=== PATIENT | female | born 1935 | race Caucasian/White ===

== ENCOUNTER 2018-12-08 11:09 | Observation (INO) | payer MEDICARE ==
--- NOTE | 2018-12-08 11:35 | ED ---
Neuro HPI - General Chief Complaint: Neuro Symptoms/Deficit Stated Complaint: left sided weakness Time Seen by Provider: 12/08/18 11:14 Source: patient, EMS Mode of arrival: ambulatory Limitations: no limitations - History of Present Illness Is the patient presenting with stroke symptoms?: No Initial Comments: Patient presents to the emergency department stating that she had some numbness on the left side of her body. She also felt like her left upper extremity became very stiff, and was hard to use. Her symptoms resolved after 10 minutes. She currently has no symptoms. She has no chest pain or pressure. She has no nausea or vomiting. She has no focal weakness. She did not have any trouble speaking at anytime. She has no lightheadedness or dizziness. She did not pass out. - Related Data Home Medications: Home Medications Medication Instructions Recorded Confirmed Atenolol [Tenormin] 50 mg PO HS 11/27/13 12/08/18 HYDROcodone/APAP 10-325MG [[place] 1 tab PO BID 11/27/13 12/08/18 10] DULoxetine HCL [Cymbalta] 60 mg PO HS 12/08/18 12/08/18 Hydrochlorothiazide [Hydrodiuril] 50 mg PO DAILY 12/08/18 12/08/18 LORazepam [Ativan] 0.5 mg PO BID 12/08/18 12/08/18 Levothyroxine Sodium [Synthroid] 200 mcg PO DAILY 12/08/18 12/08/18 Losartan Potassium 100 mg PO DAILY 12/08/18 12/08/18 Potassium Chloride ER [K-Dur 20] 20 meq PO DAILY 12/08/18 12/08/18 Simvastatin [Zocor] 20 mg PO HS 12/08/18 12/08/18 Allergies/Adverse Reactions: Allergies Allergy/AdvReac Type Severity Reaction Status Date / Time lisinopril Allergy Swelling Verified 12/08/18 11:21 Sulfa (Sulfonamide Allergy Unknown Verified 12/08/18 11:21 Antibiotics) Review of Systems ROS Statement: Those systems with pertinent positive or pertinent negative responses have been documented in the HPI. ROS Other: All systems not noted in ROS Statement are negative. General Exam Limitations: no limitations General appearance: alert, in no apparent distress Head exam: Present: atraumatic, normocephalic, normal inspection Eye exam: Present: normal appearance, PERRL, EOMI. Absent: scleral icterus, conjunctival injection, periorbital swelling ENT exam: Present: normal exam, mucous membranes moist Neck exam: Present: normal inspection. Absent: tenderness, meningismus, lymphadenopathy Respiratory exam: Present: normal lung sounds bilaterally. Absent: respiratory distress, wheezes, rales, rhonchi, stridor Cardiovascular Exam: Present: regular rate, normal rhythm, normal heart sounds. Absent: systolic murmur, diastolic murmur, rubs, gallop, clicks GI/Abdominal exam: Present: soft, normal bowel sounds. Absent: distended, ten derness, guarding, rebound, rigid Extremities exam: Present: normal inspection, full ROM, normal capillary refill. Absent: tenderness, pedal edema, joint swelling, calf tenderness Back exam: Present: normal inspection Neurological exam: Present: alert, oriented X3, CN II-XII intact Psychiatric exam: Present: normal affect, normal mood Skin exam: Present: warm, dry, intact, normal color. Absent: rash Stroke MDM - Lab Data Result diagrams: 12/08/18 11:34 12/08/18 11:34 Lab Results 12/08/18 12/08/18 12/08/18 Range/Units 11:34 11:34 11:34 WBC 9.6 (3.8-10.6) k/uL RBC 4.38 (3.80-5.40) m/uL Hgb 13.1 (11.4-16.0) gm/dL Hct 38.9 (34.0-46.0) % MCV 88.7 (80.0-100.0) fL MCH 29.8 (25.0-35.0) pg MCHC 33.6 (31.0-37.0) g/dL RDW 16.2 H (11.5-15.5) % Plt Count 307 (150-450) k/uL Neutrophils % 73 % Lymphocytes % 15 % Monocytes % 6 % Eosinophils % 3 % Basophils % 1 % Neutrophils # 7.0 (1.3-7.7) k/uL Lymphocytes # 1.4 (1.0-4.8) k/uL Monocytes # 0.6 (0-1.0) k/uL Eosinophils # 0.3 (0-0.7) k/uL Basophils # 0.1 (0-0.2) k/uL Anisocytosis Slight PT 10.2 (9.0-12.0) sec INR 0.9 (<1.2) APTT 21.0 L (22.0-30.0) sec Sodium 132 L (137-145) mmol/L Potassium 4.1 (3.5-5.1) mmol/L Chloride 97 L (98-107) mmol/L Carbon Dioxide 23 (22-30) mmol/L Anion Gap 12 mmol/L BUN 23 H (7-17) mg/dL Creatinine 0.70 (0.52-1.04) mg/dL Est GFR (CKD-EPI)AfAm >90 (>60 ml/min/1.73 sqM) Est GFR (CKD-EPI)NonAf 82 (>60 ml/min/1.73 sqM) Glucose 127 H (74-99) mg/dL Calcium 9.4 (8.4-10.2) mg/dL Total Bilirubin 0.6 (0.2-1.3) mg/dL AST 25 (14-36) U/L ALT 15 (9-52) U/L Alkaline Phosphatase 85 (38-126) U/L Troponin I (0.000-0.034) ng/mL Total Protein 8.3 H (6.3-8.2) g/dL Albumin 4.0 (3.5-5.0) g/dL 12/08/18 Range/Units 11:34 WBC (3.8-10.6) k/uL RBC (3.80-5.40) m/uL Hgb (11.4-16.0) gm/dL Hct (34.0-46.0) % MCV (80.0-100.0) fL MCH (25.0-35.0) pg MCHC (31.0-37.0) g/dL RDW (11.5-15.5) % Plt Count (150-450) k/uL Neutrophils % % Lymphocytes % % Monocytes % % Eosinophils % % Basophils % % Neutrophils # (1.3-7.7) k/uL Lymphocytes # (1.0-4.8) k/uL Monocytes # (0-1.0) k/uL Eosinophils # (0-0.7) k/uL Basophils # (0-0.2) k/uL Anisocytosis PT (9.0-12.0) sec INR (<1.2) APTT (22.0-30.0) sec Sodium (137-145) mmol/L Potassium (3.5-5.1) mmol/L Chloride (98-107) mmol/L Carbon Dioxide (22-30) mmol/L Anion Gap mmol/L BUN (7-17) mg/dL Creatinine (0.52-1.04) mg/dL Est GFR (CKD-EPI)AfAm (>60 ml/min/1.73 sqM) Est GFR (CKD-EPI)NonAf (>60 ml/min/1.73 sqM) Glucose (74-99) mg/dL Calcium (8.4-10.2) mg/dL Total Bilirubin (0.2-1.3) mg/dL AST (14-36) U/L ALT (9-52) U/L Alkaline Phosphatase (38-126) U/L Troponin I <0.012 (0.000-0.034) ng/mL Total Protein (6.3-8.2) g/dL Albumin (3.5-5.0) g/dL - Medical Decision Making Patient presented with paresthesias in the left side or weakness in the hand, now resolved. She has no neurological deficits. CT of the head shows no acute bleed or stroke. CTA shows 50% carotid stenosis. I'm concerned she likely had a TIA and requires further workup. Patient will be admitted to the hospital. Past Medical History Past Medical History: Hyperlipidemia, Hypertension History of Any Multi-Drug Resistant Organisms: None Reported Past Surgical History: Breast Surgery, Joint Replacement, Orthopedic Surgery Past Psychological History: Anxiety, Depression Smoking Status: Former smoker Past Alcohol Use History: Occasional Past Drug Use History: None Reported Course Vital Signs 12/08/18 11:15 Temperature 98.1 F Pulse Rate 95 Respiratory 18 Rate Blood Pressure 116/80 O2 Sat by Pulse 97 Oximetry Disposition Clinical Impression: Transient cerebral ischemia Disposition: ADMITTED IP TO THIS HOSP Condition: Fair Referrals: Nonstaff,Physician [Primary Care Provider] - 1-2 days
[2018-12-08 11:48] LABS: Anisocytosis Slight; Basophils # (A) 0.1 k/uL (0-0.2); Basophils % (A) 1 %; Eosinophils # (A) 0.3 k/uL (0-0.7); Eosinophils % (A) 3 %; HCT 38.9 % (34.0-46.0); HGB 13.1 gm/dL (11.4-16.0); Lymphocytes # (A) 1.4 k/uL (1.0-4.8); Lymphocytes % (A) 15 %; MCH 29.8 pg (25.0-35.0); MCHC 33.6 g/dL (31.0-37.0); MCV 88.7 fL (80.0-100.0); Monocytes # (A) 0.6 k/uL (0-1.0); Monocytes % (A) 6 %; Neutrophils % (A) 73 %; Platelet Count 307 k/uL (150-450); RBC 4.38 m/uL (3.80-5.40); RDW 16.2 % (11.5-15.5); WBC 9.6 k/uL (3.8-10.6)
[2018-12-08 11:49] LABS: ALT 15 U/L (9-52); AST 25 U/L (14-36); African American GFR (CKD) >90 (>60 ml/min/1.73 sqM); Alkaline Phosphatase 85 U/L (38-126); Anion Gap 12 mmol/L; Blood Urea Nitrogen 23 mg/dL (7-17); Calcium 9.4 mg/dL (8.4-10.2); Carbon Dioxide 23 mmol/L (22-30); Chloride 97 mmol/L (98-107); Glucose 127 mg/dL (74-99); Potassium 4.1 mmol/L (3.5-5.1); Sodium 132 mmol/L (137-145); Total Bilirubin 0.6 mg/dL (0.2-1.3); Total Protein 8.3 g/dL (6.3-8.2)
[2018-12-08 12:16] LABS: INR 0.9 (<1.2); Prothrombin Time 10.2 sec (9.0-12.0)
--- NOTE | 2018-12-08 12:44 | CT ---
EXAMINATION TYPE: CT brain wo con DATE OF EXAM: 12/08/2018 COMPARISON: None HISTORY: Left side weakness CT DLP: 1088 mGycm Automated exposure control for dose reduction was used. TECHNIQUE: CT scan of the head is performed without contrast. FINDINGS: There is no acute intracranial hemorrhage or midline shift identified. Suspicious extra-a xial fluid collection. There is diffuse ventricular and sulcal prominence consistent with diffuse age -related cerebral atrophy. There is low-attenuation in the periventricular white matter consistent w ith chronic small vessel ischemic change. The globes are intact and the visualized sinuses are clear . IMPRESSION: No acute intracranial hemorrhage or midline shift. There is diffuse age-related cerebra l atrophy and chronic small vessel ischemic change noted. MRI could be considered given the patient' s symptoms of left-sided weakness.
--- NOTE | 2018-12-08 12:53 | XR ---
EXAMINATION TYPE: XR chest 2V DATE OF EXAM: 12/08/2018 COMPARISON: 11/19/2013 HISTORY: Altered mental status and weakness TECHNIQUE: Frontal and lateral views of the chest are obtained. FINDINGS: Chronic interstitial prominence. New peribronchial cuffing. There is no focal air space opa city, pleural effusion, or pneumothorax seen. The cardiac silhouette size is within normal limits. M ultiple old healed right sided rib fractures. Left humeral arthroplasty noted. Degenerative changes o f the spine and right shoulder. Flattening of the diaphragms and pulmonary hyperinflation suggests un derlying COPD. IMPRESSION: Peribronchial cuffing on the lateral view may relate to reactive or infectious airway disease. Otherw ise chronic findings.
--- NOTE | 2018-12-08 13:17 | CT ---
EXAMINATION TYPE: CT angio head neck DATE OF EXAM: 12/08/2018 HISTORY: left side weakness COMPARISON: CT brain dictation the same date CT DLP: 624.7 mGycm. Automated Exposure Control for Dose Reduction was Utilized. TECHNIQUE: CTA scan of the neck is performed with IV Contrast, patient injected with 50 mL of Isovue 370, axial images are obtained, coronal and sagittal reformatted images are reviewed. Three-D recons tructed images are created on an independent workstation and reviewed. FINDINGS: Carotid/Vascular Structures: Conventional three-vessel branch pattern of the aortic arch is seen. No hemodynamically significant stenosis within the common carotid arteries, carotid bulbs, nor cervical portions of the internal carotid arteries. There is dominance on the left vertebral artery although t he vertebral arteries both appear patent without hemodynamic significant stenosis. Vertebrobasilar sy stem overall also appears patent with a tortuous but otherwise unremarkable basilar artery. There is stenosis of the left A1 segment of the anterior cerebral artery of approximately 50% in comparison to the right involving the entirety of the A1 segment. An anterior communicating artery is not definiti vely identified. No sizable intracranial aneurysm is seen. Major intracranial vasculature appear freddy sly patent. There is also stenosis of the left P1 segment in comparison to the right also of approxim ately 50%. Other: Conglomeration of right hilar lymph nodes is partially visualized measuring 2.4 x 1.4 cm. Othe r mildly enlarged and prominent mediastinal lymph nodes are partially visualized. Mild multilevel deg enerative disc disease of the cervical spine. There are geographic opacities scattered throughout the lungs most commonly on the basis of fluid overload but can be seen in pneumonitis. Pleural effusions are partially visualized. IMPRESSION: 1. No evidence of large vessel intracranial occlusion. Stenosis of the left A1 segment of the anterio r cerebral artery and P1 segment of the posterior cerebral artery are seen of approximately 50%. 2. Partially visualized mediastinal adenopathy that could be further evaluated with CT thorax. Scatte red groundglass opacities are noted with partially visualized pleural effusions all likely on the bas is of fluid overload although pneumonitis is possible.
[2018-12-08] MEDS ORDERED: NALOXONE 0.4 MG/ML 1 ML VIAL IV PRN (14:10)
[2018-12-08] MEDS ORDERED: traMADol 50 MG TAB PO PRN (14:10)
[2018-12-08] MEDS ORDERED: HYDROmorphone 1 MG/ML 1 ML SYRINGE IVP PRN (14:10)
[2018-12-08] MEDS ORDERED: MAG HYDROX/AL HYDROX/SIMETH 30 ML CUP PO PRN (14:10)
[2018-12-08] MEDS ORDERED: ONDANSETRON 4 MG/2 ML VIAL IVP PRN (14:10)
[2018-12-08] MEDS ORDERED: LORazepam 0.5 MG TAB PO PRN (14:10)
[2018-12-08] MEDS ORDERED: TEMAZEPAM 15 MG CAP PO PRN (14:10)
[2018-12-08] MEDS ORDERED: DOCUSATE 100 MG CAP PO PRN (14:10)
[2018-12-08] MEDS ORDERED: HYDROcodone/APAP 10-325MG 1 EACH TAB PO PRN (19:06)
[2018-12-08] MEDS: ASPIRIN 325 MG TAB PO SCH (19:58)
[2018-12-08] MEDS ORDERED: ATORVASTATIN 10 MG TAB PO SCH (21:00)
[2018-12-08] MEDS ORDERED: DULoxetine HCL 60 MG CAPSULE.DR PO SCH (21:00)
[2018-12-08] MEDS ORDERED: HYDROcodone/APAP 10-325MG 1 EACH TAB PO SCH (21:00)
[2018-12-08] MEDS ORDERED: ATENOLOL 50 MG TAB PO SCH (21:00)
[2018-12-09 06:11] LABS: Basophils # (A) 0.1 k/uL (0-0.2); Basophils % (A) 1 %; Eosinophils # (A) 0.4 k/uL (0-0.7); Eosinophils % (A) 5 %; HCT 37.5 % (34.0-46.0); HGB 12.4 gm/dL (11.4-16.0); Lymphocytes # (A) 2.1 k/uL (1.0-4.8); Lymphocytes % (A) 24 %; MCH 29.6 pg (25.0-35.0); MCHC 33.1 g/dL (31.0-37.0); MCV 89.4 fL (80.0-100.0); Mean Platelet Volume 7.2; Monocytes # (A) 0.8 k/uL (0-1.0); Monocytes % (A) 9 %; Neutrophils # (A) 5.1 k/uL (1.3-7.7); Neutrophils % (A) 58 %; Platelet Count 310 k/uL (150-450); RDW 15.2 % (11.5-15.5); WBC 8.7 k/uL (3.8-10.6)
[2018-12-09 06:21] LABS: Calcium 9.4 mg/dL (8.4-10.2); Potassium 4.2 mmol/L (3.5-5.1)
[2018-12-09] MEDS ORDERED: LEVOTHYROXINE 100 MCG TAB PO SCH (06:30)
[2018-12-09] MEDS: ASPIRIN 325 MG TAB PO SCH (08:33)
[2018-12-09] MEDS ORDERED: POTASSIUM CHLORIDE ER 20 MEQ TAB.ER PO SCH (09:00)
[2018-12-09] MEDS ORDERED: HYDROCHLOROTHIAZIDE 50 MG TAB PO SCH (09:00)
[2018-12-09] MEDS ORDERED: LOSARTAN 50 MG TAB PO SCH (09:00)
[2018-12-09 13:10] LABS: T4, Free (Free Thyroxine) 1.91 ng/dL (0.78-2.19)
[2018-12-09 13:24] VITALS: BP 136/78; PULSE 65; RESP 16; TEMP 97.6
--- NOTE | 2018-12-09 14:51 | P.HPIM ---
History of Present Illness 83-year-old cousin female came in with comments of numbness in the left arm and left leg. Patient usually sees physicians in [place]. Patient is resisting care. Symptoms resolved in 10 minutes without any weakness without any speech abnormality. Patient does have significant history of from atrial fibrillation patient used to be on aspirin which was discontinued any other anticoagulations discontinued as well because of her ischemic colitis and the severe GI bleed in the past. Patient doesn't have any of those issues at this time. Patient had a failed the watchman procedure followed by maze procedure for A. fib with clamp on the left atrial appendage. Patient EKG showed sinus rhythm and no significant abnormality and telemetry TSH is bit low but free T4 is within normal limits be probably may need to cut down the levothyroxine dose. There is incidental finding of mediastinal adenopathy which can be reassessed in about a month or with a dedicated CAT scan of the chest as an outpatient. Patient underwent workup for TIA, probably will undergo MRI if that's negative patient will be discharged on aspirin had a lengthy discussion with the neurology as well as patient. Patient will be started back on 81 mg of aspirin. Her LDL is in 30s. Patient had a CT angios the head and neck which did not show any significant atherosclerotic coronary occlusive disease. If cleared by neurology and if MRI doesn't show any significant about the patient will be discharged today. Review of Systems REVIEW OF SYSTEMS: CONSTITUTIONAL: No fever, no malaise, no fatigue. HEENT: No recent visual problems or hearing problems. Denied any sore throat. CARDIOVASCULAR: No chest pain, orthopnea, PND, no palpitations, no syncope. PULMONARY: No shortness of breath, no cough, no hemoptysis. GASTROINTESTINAL: No diarrhea, no nausea, no vomiting, no abdominal pain. NEUROLOGICAL: No headaches, no weakness, no numbness. HEMATOLOGICAL: Denies any bleeding or petechiae. GENITOURINARY: Denies any burning micturition, frequency, or urgency. MUSCULOSKELETAL/RHEUMATOLOGICAL: Denies any joint pain, swelling, or any muscle pain. ENDOCRINE: Denies any polyuria or polydipsia. The rest of the 14-point review of systems is negative. Past Medical History Past Medical History: Atrial Fibrillation, Eye Disorder, Hearing Disorder / Deafness, Hyperlipidemia, Hypertension, Osteoarthritis (OA), Thyroid Disorder Additional Past Medical History / Comment(s): 12/08/09 ADMITTED FOR TIA SYMPTOMS. ENDOMETRIOSIS. ALOPECIA UNKNOWN CAUSE. URINARY STRESS INCONTINENCE, ISCHEMIC COLITIS History of Any Multi-Drug Resistant Organisms: None Reported Past Surgical History: Breast Surgery, Joint Replacement, Orthopedic Surgery Additional Past Surgical History / Comment(s): MAZE PROCEDRE TO STOP AFIB, ATRIAL CLAMP ON LEFT ATRIAL APPENDAGE. BILAT KNEE REPLACEMENTS AND LEFT SHOULDER JOINT REPLACEMENT. BILATERAL BREAST REDUCTION, RIGHT CATARACT SURGERY. TOOTH IMPLANTS Past Anesthesia/Blood Transfusion Reactions: No Reported Reaction Additional Past Anesthesia/Blood Transfusion Reaction / Comment(s): BLOOD TRANSFUSION FIRST KNEE SURGERY Smoking Status: Former smoker - Past Family History Father Family Medical History: Diabetes Mellitus, GERD/Reflux, Myocardial Infarction (VT) Mother Family Medical History: No Reported History Additional Family Medical History / Comment(s): GALLBLADDER SURGERY AT AGE 36. KILLED AUTO ACCIDENT AGE 70 Medications and Allergies Home Medications Medication Instructions Recorded Confirmed Type Atenolol [Tenormin] 50 mg PO HS 11/27/13 12/08/18 History HYDROcodone/APAP 10-325MG [[place] 1 tab PO BID 11/27/13 12/08/18 History 10] DULoxetine HCL [Cymbalta] 60 mg PO HS 12/08/18 12/08/18 History Hydrochlorothiazide [Hydrodiuril] 50 mg PO DAILY 12/08/18 12/08/18 History LORazepam [Ativan] 0.5 mg PO BID 12/08/18 12/08/18 History Levothyroxine Sodium [Synthroid] 200 mcg PO DAILY 12/08/18 12/08/18 History Losartan Potassium 100 mg PO DAILY 12/08/18 12/08/18 History Potassium Chloride ER [K-Dur 20] 20 meq PO DAILY 12/08/18 12/08/18 History Simvastatin [Zocor] 20 mg PO HS 12/08/18 12/08/18 History Aspirin 81 mg PO DAILY #30 chewable 12/09/18 Rx Allergies Allergy/AdvReac Type Severity Reaction Status Date / Time lisinopril Allergy Swelling Verified 12/08/18 11:21 Sulfa (Sulfonamide Allergy Unknown Verified 12/08/18 11:21 Antibiotics) Physical Exam Vitals: Vital Signs Temp Pulse Pulse Resp BP BP Pulse Ox 12/09/18 12:00 97.6 F 65 16 136/78 94 L 12/09/18 11:23 91 14 12/09/18 08:00 98.0 F 91 14 110/76 93 L 12/09/18 03:28 98.4 F 86 18 95 12/09/18 00:00 98.4 F 90 18 118/77 96 12/08/18 20:00 98 F 92 18 121/81 93 L 12/08/18 15:10 98.4 F 98 20 130/93 96 12/08/18 14:52 98.0 F 97 18 139/94 96 Intake and Output 12/08/18 12/09/18 12/09/18 22:59 06:59 14:59 Intake Total 300 Balance 300 Intake: Oral 300 Other: # Voids 1 1 1 Weight 86.5 kg 85.9 kg PHYSICAL EXAMINATION: GENERAL: The patient is alert and oriented x3, not in any acute distress. Well developed, well nourished. HEENT: Pupils are round and equally reacting to light. EOMI. No scleral icterus. No conjunctival pallor. Normocephalic, atraumatic. No pharyngeal erythema. No thyromegaly. CARDIOVASCULAR: S1 and S2 present. No murmurs, rubs, or gallops. PULMONARY: Chest is clear to auscultation, no wheezing or crackles. ABDOMEN: Soft, nontender, nondistended, normoactive bowel sounds. No palpable organomegaly. MUSCULOSKELETAL: No joint swelling or deformity. EXTREMITIES: No cyanosis, clubbing, or pedal edema. NEUROLOGICAL: Gross neurological examination did not reveal any focal deficits. SKIN: No rashes. Results CBC & Chem 7: 12/09/18 05:25 12/09/18 05:30 Labs: Abnormal Lab Results - Last 24 Hours (Table) 12/09/18 12/09/18 Range/Units 05:25 05:30 Sodium 135 L (137-145) mmol/L BUN 25 H (7-17) mg/dL Glucose 104 H (74-99) mg/dL HDL Cholesterol 31 L (40-60) mg/dL TSH 0.165 L (0.465-4.680) mIU/L Thrombosis Risk Factor Assmnt - Choose All That Apply Each Factor Represents 1 point: Obesity (BMI >25) Other Risk Factors: Yes (TIA) Each Risk Factor Represents 3 Points: Age 75 years or older Other congenital or acquired thrombophilia - If yes, enter type in comment: No Thrombosis Risk Factor Assessment Total Risk Factor Score: 4 Thrombosis Risk Factor Assessment Level: Moderate Risk Assessment and Plan Plan: -Possibility of TIA mostly ischemic involving the ventral posterior lateral nucleus of of left thalamic's, or diffuse sensory TIA, symptoms resolved, patient was started back on aspirin will not require any statin. Neurology validate the patient MRI as mentioned above. -Atrial fibrillation no evidence of recurrence of A. fib considering that the patient has a maze procedure in the past and there is no clear-cut evidence of A. fib recurrence patient will not be started on antibiotics but patient was started on aspirin if deemed necessary patient may benefit from Holter monitoring as an outpatient. -Hypothyroidism TSH is low may need to cut down the levothyroxine dose, free T4 is 1.91. -Incidental finding of mediastinal adenopathy probably because of infectious causes minute to repeat the CAT scan about a month, patient may require a dedicated CAT scan of the chest. This is an incidental finding on the CAT scan of the brain. -History of ischemic colitis in the past with significant GI bleed and subcutaneous current discontinuation of all anticoagulation and antiplatelet therapy -Hyperlipidemia - hypertension -Anxiety disorder and depression. Patient probably will be discharged today depending on MRI results with the baby aspirin.
--- NOTE | 2018-12-09 14:51 | P.DS ---
Providers Date of admission: 12/08/18 14:10 Attending physician: Bridget Justin MD Consults: 12/08/18 16:25 Consult Physician Routine Consulting Provider: Valerie Angeles Consult Reason/Comments: TIA, LEFT ARM AND LEG WEAKNESS Do you want consulting provider notified?: Yes Primary care physician: Physician Nonstaff Hospital Course: Please refer to my HPI Patient Condition at Discharge: Fair Plan - Discharge Summary New Discharge Prescriptions: New Aspirin 81 mg PO DAILY #30 chewable Continue HYDROcodone/APAP 10-325MG [[place] 10-325] 1 tab PO BID Atenolol [Tenormin] 50 mg PO HS Simvastatin [Zocor] 20 mg PO HS Potassium Chloride ER [K-Dur 20] 20 meq PO DAILY Losartan Potassium 100 mg PO DAILY Hydrochlorothiazide [Hydrodiuril] 50 mg PO DAILY DULoxetine HCL [Cymbalta] 60 mg PO HS Levothyroxine Sodium [Synthroid] 200 mcg PO DAILY LORazepam [Ativan] 0.5 mg PO BID Discharge Medication List Atenolol [Tenormin] 50 mg PO HS 11/27/13 [History] HYDROcodone/APAP 10-325MG [[place] 10-325] 1 tab PO BID 11/27/13 [History] DULoxetine HCL [Cymbalta] 60 mg PO HS 12/08/18 [History] Hydrochlorothiazide [Hydrodiuril] 50 mg PO DAILY 12/08/18 [History] LORazepam [Ativan] 0.5 mg PO BID 12/08/18 [History] Levothyroxine Sodium [Synthroid] 200 mcg PO DAILY 12/08/18 [History] Losartan Potassium 100 mg PO DAILY 12/08/18 [History] Potassium Chloride ER [K-Dur 20] 20 meq PO DAILY 12/08/18 [History] Simvastatin [Zocor] 20 mg PO HS 12/08/18 [History] Aspirin 81 mg PO DAILY #30 chewable 12/09/18 [Rx] Follow up Appointment(s)/Referral(s): Nonstaff,Physician [Primary Care Provider] - 3 Days
--- NOTE | 2018-12-09 17:01 | P.CNNES ---
History of Present Illness Consult date: 12/09/18 Reason for Consult: TIA Chief complaint: Left-sided numbness History of Present Illness: REFERRING PHYSICIAN: Dr. Bridget Justin HISTORY OF PRESENT ILLNESS: Thank you for allowing me to evaluate Mrs. Claudia Middleton. Ms. Middleton is an 83-year-old woman with past medical history of hyperlipidemia and hypertension, presented to [facility] for left-sided numbness, consulting neurology for TIA work-up and management. Patient states that she was bending over the bathtub to turn on the water when she suddenly started having L arm numbness and "prickly" sensation that spread to her legs. Patient states that this episode lasted for about 10-15 minutes and self-resolved. Patient remember thinking, "is my leg gonna start working?" She denies having to drag her leg but it was more of the sensation deficit that bothered her. Patient denies any headache, dizziness, nausea, vomiting, double/blurry vision, weakness, dysarthria, dysphagia, word-finding difficulty during the episode. Patient denies any recent sickness, travel, fever, sick contact. She lives in [place] most of the time, but she was visiting [place] for about 2 months (she has a cottage in the area, where she has been staying). Patient reports that she had an episode of sharp pain that started from her back to her chest, was diagnosed with atrial fibrillation. Patient underwent maze procedure along with atrial clamp on L atrial appendage as patient was advised by GI specialists that she should not be on anticoagulation or even ASA for concerns of bleeding. Patient with episodes of ischemic colitis x 4 since many years ago, last episode early this year. Patient and partner state that during one of the episodes, she may have had a large bleed due to being on ASA and taking Advil on a daily basis for pain. Patient also states that she has not seen a technical service specialist in a while. PAST MEDICAL HISTORY: Hyperlipidemia, hypertension, anxiety, depression, a.fib, R eye cataract s/p surgery, osteoarthritis, endometriosis, ischemic colitis PAST SURGICAL HISTORY: b/l knee replacement and L shoulder joint replacement, breast reduction surgery, maze procedure to stop a.fib, atrial clamp on L atrial appendage HOME MEDICATIONS: [place], Atenolol, Simvastatin, KCl, Losartan, HCTZ, Duloxetine, Levothyroxine ALLERGIES: Lisinopril, sulfa SOCIAL HISTORY: Former smoker, denies EtOH/drug abuse FAMILY HISTORY: Father-DM, GERD, [place] Mother-Gallbladder surgery at 36, from a car accident REVIEW OF SYSTEMS: The 14 systems are reviewed and no additional points are identified compared to the review of systems documented history and physical PHYSICAL EXAMINATION: VITAL SIGNS: T 98 HR 90 RR 14 bp 110/76 O2 saturation 93% on room air GEN.: NAD, pleasant and cooperative HEENT: NCAT, sclera without icterus NECK: Supple SKIN AND EXTREMITIES: Warm to touch, no edema NEURO: MENTAL STATUS: Patient alert and oriented to self, place, time. Able to name the current president. Speech fluent, able to name and repeat, following all commands readily. No right and left disorientation, extinction to double simu ltaneous stimulation, finger agnosia, neglect. CRANIAL NERVES II THROUGH XII: II: Pupils are equal and reactive to light symmetrically. No afferent pupillary defect. Visual person are intact. III, IV, : No ptosis. Extraocular movements full. No nystagmus. V: Facial sensation intact from V1-3. VII. No clear facial asymmetry. VIII: Hearing intact to finger rub bilaterally. IX, X: Symmetric palate elevation. XI: Shoulder shrug intact. XII: Tongue midline without fasciculation or atrophy. MOTOR: Normal bulk/tone. No pronator drift or tremor. Strength is 5/5 throughout all 4 extremities. SENSORY: Intact to light touch in all 4 extremities. Romberg is negative. REFLEXES: 2+ throughout (except L knee). Toes are downgoing. No clonus. Vince's is absent COORDINATION: Finger to nose intact. No dysmetria. GAIT: Narrow-based and stable. Able to toe (but with some difficult due to previous knee surgeries)/heel/tandem walk DIAGNOSTIC TESTING: LABORATORY: WBC 8.7 hemoglobin 12.4 platelet 310 PT 10.2 INR 0.9 Sodium 135 potassium 4.2 chloride 101 bicarb 25 BUN 25 creatinine 0.86 glucose 104 AST 25 ALT 15 troponin <0.012 IMAGING: CT head without contrast 12/08/2018: No acute intracranial hemorrhage or midline shift. There is diffuse age-related cerebral atrophy and chronic small vessel ischemic change noted. CT head and neck with contrast 12/08/2018: No evidence of large vessel intracranial occlusion. 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 Partially visualized mediastinal adenopathy that could be further evaluated with CT thorax. Scattered ground glass opacities are noted with partially visualized pleural effusion all likely on the basis of fluid overload although pneumonitis as possible. Chest x-ray 12/08/2018: Peribronchial cuffing on the lateral view may relate to reactive for infectious airway disease. Otherwise chronic changes. Cardiac monitoring: No arrhythmia noted so far. ASSESSMENT: Ms. Middleton is an 83-year-old woman with past medical history of hyperlipidemia and hypertension, presented to [facility] for left-sided numbness, consulting neurology for TIA work-up and management. At this time, patient with no focal deficits. Patient would benefit from getting MRI brain during this admission, but due to the presence of atrial appendage clipping and radiology requiring an operative report to find out whether or not the clip is MRI compatible. Patient with no neuro deficits, most likely diagnosis TIA. Patient has a high risk of stroke as patient with hx of a.fib, but it's possible that the maze procedure can treat atrial fibrillation. With a diagnosis of a.fib, this patient's CHADsVASc score is 7! Vessel imaging with no large intracranial occlusion or carotid stenosis. Patient would like to return to [place] to get further care including possible MRI as outpatient. Patient would like to be started on ASA at least as she says her worst nightmare is having a stroke. Discussed the concern about ischemic colitis and heaving bleeding as a result. Patient would like to continue taking ASA. RECOMMENDATIONS: 1. TTE done; awaiting final results 2. c/w ASA 81 mg qday 3. increase statin to atorvastatin atorvastatin 80mg qday 4. pt needs to follow up with her PCP within 1-2 weeks of discahrge and with technical service specialist and neurologist within 2-3 weeks of discharge Past Medical History Past Medical History: Atrial Fibrillation, Eye Disorder, Hearing Disorder / De afness, Hyperlipidemia, Hypertension, Osteoarthritis (OA), Thyroid Disorder Additional Past Medical History / Comment(s): 12/08/09 ADMITTED FOR TIA SYMPTOMS. ENDOMETRIOSIS. ALOPECIA UNKNOWN CAUSE. URINARY STRESS INCONTINENCE, ISCHEMIC COLITIS History of Any Multi-Drug Resistant Organisms: None Reported Past Surgical History: Breast Surgery, Joint Replacement, Orthopedic Surgery Additional Past Surgical History / Comment(s): MAZE PROCEDRE TO STOP AFIB, ATRIAL CLAMP ON LEFT ATRIAL APPENDAGE. BILAT KNEE REPLACEMENTS AND LEFT SHOULDER JOINT REPLACEMENT. BILATERAL BREAST REDUCTION, RIGHT CATARACT SURGERY. TOOTH IMPLANTS Past Anesthesia/Blood Transfusion Reactions: No Reported Reaction Additional Past Anesthesia/Blood Transfusion Reaction / Comment(s): BLOOD TRANSFUSION FIRST KNEE SURGERY Smoking Status: Former smoker - Past Family History Father Family Medical History: Diabetes Mellitus, GERD/Reflux, Myocardial Infarction ([place]) Mother Family Medical History: No Reported History Additional Family Medical History / Comment(s): GALLBLADDER SURGERY AT AGE 36. KILLED AUTO ACCIDENT AGE 70 Medications and Allergies Home Medications Medication Instructions Recorded Confirmed Type Atenolol [Tenormin] 50 mg PO HS 11/27/13 12/08/18 History HYDROcodone/APAP 10-325MG [[place] 1 tab PO BID 11/27/13 12/08/18 History 10-325] DULoxetine HCL [Cymbalta] 60 mg PO HS 12/08/18 12/08/18 History Hydrochlorothiazide [Hydrodiuril] 50 mg PO DAILY 12/08/18 12/08/18 History LORazepam [Ativan] 0.5 mg PO BID 12/08/18 12/08/18 History Levothyroxine Sodium [Synthroid] 200 mcg PO DAILY 12/08/18 12/08/18 History Losartan Potassium 100 mg PO DAILY 12/08/18 12/08/18 History Potassium Chloride ER [K-Dur 20] 20 meq PO DAILY 12/08/18 12/08/18 History Simvastatin [Zocor] 20 mg PO HS 12/08/18 12/08/18 History Aspirin 81 mg PO DAILY #30 chewable 12/09/18 Rx Allergies Allergy/AdvReac Type Severity Reaction Status Date / Time lisinopril Allergy Swelling Verified 12/08/18 11:21 Sulfa (Sulfonamide Allergy Unknown Verified 12/08/18 11:21 Antibiotics) Physical Examination - Vital Signs Vital Signs: Vital Signs Temp Pulse Pulse Resp BP BP Pulse Ox 12/09/18 08:00 98.0 F 91 14 110/76 93 L 12/09/18 03:28 98.4 F 86 18 95 12/09/18 00:00 98.4 F 90 18 118/77 96 12/08/18 20:00 98 F 92 18 121/81 93 L 12/08/18 15:10 98.4 F 98 20 130/93 96 12/08/18 14:52 98.0 F 97 18 139/94 96 12/08/18 14:41 98.0 F 97 18 139/94 96 12/08/18 11:15 98.1 F 95 18 116/80 97 Intake and Output 12/08/18 12/09/18 12/09/18 22:59 06:59 14:59 Other: # Voids 1 1 Weight 86.5 kg 85.9 kg Results - Laboratory Findings CBC and BMP: 12/09/18 05:25 12/09/18 05:30 Abnormal Lab Findings: Abnormal Labs 12/08/18 12/08/18 12/08/18 11:34 11:34 11:34 RDW 16.2 H APTT 21.0 L Sodium 132 L Chloride 97 L BUN 23 H Glucose 127 H Total Protein 8.3 H 12/09/18 05:30 RDW APTT Sodium 135 L Chloride BUN 25 H Glucose 104 H Total Protein
[2018-12-09 18:09] LABS: Hemoglobin A1C 6.1 % (4.0-6.0)
[2018-12-10] MEDS ORDERED: LOSARTAN 50 MG TAB PO SCH (09:00)
--- NOTE | 2018-12-10 09:32 | ECHOF ---
Referral Reason:L-sided weakness MEASUREMENTS -------- HEIGHT: 157.5 cm WEIGHT: 85.7 kg BP: 110/67 RVIDd: 2.6 cm (< 3.3) IVSd: 1.3 cm (0.6 - 1.1) LVIDd: 3.8 cm (3.9 - 5.3) LVPWd: 1.2 cm (0.6 - 1.1) IVSs: 1.6 cm LVIDs: 2.1 cm LVPWs: 1.3 cm LA Diam: 3.2 cm (2.7 - 3.8) Ao Diam: 3.0 cm (2.0 - 3.7) AV Cusp: 1.6 cm (1.5 - 2.6) LA Diam: 3.3 cm (2.7 - 3.8) MV EXCURSION: 14.924 mm (> 18.000) MV EF SLOPE: 115 mm/s (70 - 150) EPSS: 0.1 cm MV E Curtis: 0.95 m/s MV DecT: 155 ms MV A Curtis: 0.27 m/s MV E/A Ratio: 3.52 RAP: 5.00 mmHg RVSP: 45.71 mmHg FINDINGS -------- Atrial fibrillation. This was a techncally difficult study with suboptimal views, , Lumason utilized for enhancement of im ages. The left ventricular size is normal. There is mild concentric left ventricular hypertrophy. Overa ll left ventricular systolic function is low-normal with, an EF between 50 - 55 %. The right ventricle is normal in size. The left atrial size is normal. The right atrial size is normal. 5.0mg OF Lumason UTLIZED: 2 OR MORE WALL SEGMENTS NOT VISUALIZED. There is mild aortic valve sclerosis. There is no evidence of aortic regurgitation. Mild mitral annular calcification present. Mild mitral regurgitation is present. Mild tricuspid regurgitation present. There is mild to moderate pulmonary hypertension. The right ventricular systolic pressure, as measured by Doppler, is 45.71mmHg. There is no pulmonic regurgitation present. The aortic root size is normal. There is no pericardial effusion. CONCLUSIONS -------- 1. Atrial fibrillation. 2. This was a techncally difficult study with suboptimal views, , Lumason utilized for enhancement of images. 3. The left ventricular size is normal. 4. There is mild concentric left ventricular hypertrophy. 5. Overall left ventricular systolic function is low-normal with, an EF between 50 - 55 %. 6. The right ventricle is normal in size. 7. The left atrial size is normal. 8. The right atrial size is normal. 9. 5.0mg OF Lumason UTLIZED: 2 OR MORE WALL SEGMENTS NOT VISUALIZED. 10. There is mild aortic valve sclerosis. 11. Mild mitral annular calcification present. 12. Mild mitral regurgitation is present. 13. Mild tricuspid regurgitation present. 14. There is mild to moderate pulmonary hypertension. 15. The right ventricular systolic pressure, as measured by Doppler, is 45.71mmHg. 16. There is no pulmonic regurgitation present. 17. The aortic root size is normal. 18. There is no pericardial effusion. TUBULAR PRODUCTS FABRICATOR: Harmony Dumas RDCS
== END 2018-12-09 16:30 | disposition home or self-care (01) ==
LOC: EC 11:09 → 3SCARD 14:10
PROVIDERS: ADMIT Internal Medicine; ATTEND Internal Medicine
DX: G45.9 Transient cerebral ischemic attack, unspecified (principal); I10 Essential (primary) hypertension; E78.5 Hyperlipidemia, unspecified; I66.3 Occlusion and stenosis of cerebellar arteries; E03.9 Hypothyroidism, unspecified; I48.91 Unspecified atrial fibrillation; M19.90 Unspecified osteoarthritis, unspecified site; F41.9 Anxiety disorder, unspecified; F32.9 Major depressive disorder, single episode, unspecified; H26.9 Unspecified cataract; L65.9 Nonscarring hair loss, unspecified; N39.3 Stress incontinence (female) (male); H91.90 Unspecified hearing loss, unspecified ear; E66.9 Obesity, unspecified; Z68.34 Body mass index [BMI] 34.0-34.9, adult; R59.0 Localized enlarged lymph nodes; Z79.890 Hormone replacement therapy; Z79.891 Long term (current) use of opiate analgesic; Z79.899 Other long term (current) drug therapy; Z88.2 Allergy status to sulfonamides; Z88.8 Allergy status to other drugs, medicaments and biological substances; Z87.891 Personal history of nicotine dependence; Z96.653 Presence of artificial knee joint, bilateral; Z96.612 Presence of left artificial shoulder joint; Z87.19 Personal history of other diseases of the digestive system; Z87.42 Personal history of other diseases of the female genital tract; Z83.3 Family history of diabetes mellitus; Z83.79 Family history of other diseases of the digestive system; Z82.49 Family history of ischemic heart disease and other diseases of the circulatory system
CPT/HCPCS: 99285; 36415; 84439; 80061; 80053; 80048; 84443; 84484 ×2; 85025 ×2; 85610; 85730; 83036; 71046; 70496; 70450; 70498; G0378 ×2; C8929; Q9950; Q9967; 93306